=== PATIENT | male | born 1975 | race Caucasian/White ===

== ENCOUNTER 2020-07-26 13:00 | Emergency (ER) | payer BC, OTHER | END 2020-07-26 13:33 | disposition home or self-care (01) | LOC: BURERS 13:00 | DX: F11.23 Opioid dependence with withdrawal (principal) | CPT/HCPCS: 99283 ==

== ENCOUNTER 2021-03-09 03:11 | Emergency (ER) | payer BC ==
[2021-03-09 14:58] LABS: SARS-CoV-2 PCR by NAA DETECTED (NotDetected)
== END 2021-03-09 03:55 | disposition home or self-care (01) ==
LOC: BURERS 03:11
DX: U07.1 COVID-19 (principal)
CPT/HCPCS: 99283; U0003; U0005